=== PATIENT | female | born 1985 | race Caucasian/White ===

== ENCOUNTER 2017-06-14 23:13 | Emergency (ER) | payer SELFPAY ==
--- NOTE | 2017-06-14 23:37 | ER Document Report ---
ED GI/ - General Mode of Arrival: Ambulatory Information source: Patient TRAVEL OUTSIDE OF THE [place] IN LAST 30 DAYS: No <DON CANALES - Last Filed: 06/15/17 03:12> <ORESTES TURCIOS - Last Filed: 06/16/17 03:42> - General Chief Complaint: Vaginal Bleeding Stated Complaint: VAGINAL BLEEDING Notes: Patient is a 32-year-old female who presents to the emergency department today with complaints of vaginal bleeding. Patient states that her last normal menstrual period was in May. Patient states that 10 days after her LMP she began bleeding and she has continued bleeding for 10 days. Patient states she does not know if she is . Patient states she is having to change pads every 4 hours. Patient is . Patient denies any lightheadedness or dizziness. Patient complains of generalized fatigue. (DON CANALES) Past Medical History - General Information source: Patient - Social History Smoking Status: Never Smoker Cigarette use (# per day): No Frequency of alcohol use: None Drug Abuse: None Lives with: Family Family History: Reviewed & Not Pertinent - Medical History Medical History: Negative Surgical Hx: Negative <DON CANALES - Last Filed: 06/15/17 03:12> Review of Systems - Review of Systems Constitutional: See HPI, Other - fatigue EENT: No symptoms reported Cardiovascular: denies: Dizziness, Lightheaded Respiratory: No symptoms reported Gastrointestinal: See HPI, Abdominal pain Genitourinary: No symptoms reported Female Genitourinary: No symptoms reported Musculoskeletal: No symptoms reported Skin: No symptoms reported Hematologic/Lymphatic: No symptoms reported Neurological/Psychological: No symptoms reported -: Yes All other systems reviewed and negative <DON CANALES - Last Filed: 06/15/17 03:12> Physical Exam <DON CANALES - Last Filed: 06/15/17 03:12> <ORESTES TURCIOS - Last Filed: 06/16/17 03:42> - Vital signs Vitals: Temp Pulse Resp BP Pulse Ox 98.4 F 73 18 127/59 H 99 06/14/17 23:14 06/14/17 23:14 06/14/17 23:14 06/14/17 23:14 06/14/17 23:14 - Notes Notes: Physical Exam: General: Alert, appears well. HEENT: Normocephalic. Atraumatic. PERRL. Extraocular movements intact. Oropharynx clear. Neck: Supple. Non-tender. Respiratory: No respiratory distress. Clear and equal breath sounds bilaterally. Cardiovascular: Regular rate and rhythm. Abdominal: Normal Inspection. Non-tender. No distension. Normal Bowel Sounds. Back: Non-tender. No deformity or step off. Extremities: Moves all four extremities. Upper extremities: Normal inspection. Normal ROM. Lower extremities: Normal inspection. No edema. Normal ROM. Neurological: Normal cognition. AAOx4. Normal speech. Psychological: Normal affect. Normal Mood. Skin: Warm. Dry. Normal color. (DON CANALES) Course - Laboratory Result Diagrams: 06/15/17 00:38 <DON CANALES - Last Filed: 06/15/17 03:12> - Laboratory Result Diagrams: 06/15/17 00:38 <ORESTES TURCIOS - Last Filed: 06/16/17 03:42> - Re-evaluation Re-evalutation: 06/15/17 05:52 She presents emergency department states that she menstrual cycle for the second time this month. She has a little bit of cramping and discomfort. She denies taking that she is but has been in the past. She denies any abdominal pain flank pain fevers chills cough chest pain or shortness breath on exam she well-appearing nontoxic abdomen soft no acute tenderness guarding rebound rigidity. Straight cath urinalysis shows that she has a urinary tract infection. She is not anemic. She could have a component of a hemorrhagic urinary tract infection. Discussed with her following up with the [facility] physician to find out why she is menstruating longer than usual and started on antibiotics orally no acute clinical concerns for pyelonephritis follow primary care physician to 3 days and discussed reasons for ED return sooner (ORESTES TURCIOS) - Vital Signs Vital signs: Temp Pulse Resp BP Pulse Ox 98.0 F 77 16 122/67 97 06/15/17 02:44 06/15/17 02:44 06/15/17 02:44 06/15/17 02:44 06/15/17 02:44 - Laboratory Laboratory results interpreted by me: 06/15/17 00:24 Urine Blood LARGE H Ur Leukocyte Esterase LARGE H Discharge <DON CANALES - Last Filed: 06/15/17 03:12> <ORESTES TURCIOS - Last Filed: 06/16/17 03:42> - Discharge Clinical Impression: Urinary tract acute, Irregular menses Condition: Stable Disposition: HOME, SELF-CARE Additional Instructions: Urinary Tract Infection Your evaluation indicates that you have a urinary tract infection. This is due to germs growing in the bladder. This is a common problem. This infection usually responds quickly to antibiotics. Your antibiotic should be taken exactly as prescribed. Drink plenty of fluids -- three to four quarts a day. Occasionally, a bladder anesthetic will be prescribed to help stop the feeling of urgency until the antibiotic has a chance to clear the infection. This may cause your urine to be dark orange. Certain urine infections require a culture. If the doctor obtained a culture, the results will be back in two days. You should call to see if a change in treatment is needed. A repeat urinalysis after you finish treatment is often recommended. The physician will let you know if further testing is required. Call the doctor if you develop fever, chills, flank pain, inability to urinate, or blood in the urine. Menorrhagia You are having severe bleeding from the uterus. We call this menorrhagia. It is most often caused by a hormone imbalance. The lining of the uterus grows too thick, then comes sloughs off with severe bleeding. There's often cramping and passage of clots. Sometimes menorrhagia is caused by benign muscle tumors in the uterus, called fibroids. There's no evidence of miscarriage or tubal . Menorrhagia often has no clear cause. But it's especially common at times when the normal menstrual cycle is disturbed -- whether by recent , use of hormones, or impending menopause. Some medical problems, such as obesity , stress, or thyroid problems make menorrhagia more likely. In many cases, the menstrual cycle will return to normal without treatment. Antiinflammatory pain medicine, like ibuprofen, can decrease cramping. Where the bleeding is significant, high-dose estrogen will usually stop the bleeding within a day of two. A cycle or two of hormones ( control pills) can help restore the uterus to normal. In some patients where bleeding is severe or resistant to treatment, a D&C is required. A endometrial biopsy (a sample of the inside of the uterus) may be recommended for some older women. This would be done by a gynecology specialist. Treatment for anemia may be required if bleeding is severe. You should rest and avoid intercourse until the bleeding is controlled. Call the doctor or return for re-examination if you feel faint, have increasing pain, or have a major increase in the amount of bleeding. Prescriptions: Nitrofurantoin/Nitrofuran Mac [Macrobid 100 mg Capsule] 1 tab PO BID #20 capsule Scribe Attestation: 06/15/17 02:27 I personally performed the services described in the documentation reviewed the documentation recorded by my scribe in my presence and it accurately and completely records my words and actions (ORESTES TURCIOS) Scribe Documentation - Scribe Written by Gian:: Gian Cadena, 06/15/2017 0319 acting as scribe for :: Brad <DON CANAELS - Last Filed: 06/15/17 03:12>
[2017-06-15 00:40] LABS: APPEARANCE,URINE CLOUDY; BILIRUBIN,URINE NEGATIVE (NEGATIVE); GLUCOSE, URINE NEGATIVE (NEGATIVE); KETONES,URINE NEGATIVE (NEGATIVE); LEUKOCYTE ESTERASE,URINE LARGE (NEGATIVE); NITRITE,URINE NEGATIVE (NEGATIVE); PROTEIN,URINE NEGATIVE (NEGATIVE); URINE SPECIFIC GRAVITY 1.015; UROBILINOGEN,URINE NEGATIVE mg/dL (<2.0)
[2017-06-15 00:53] LABS: ABSOLUTE EOSINOPHILS # (AUTO) 0.1 10^3/uL (0.0-0.6); ABSOLUTE MONOCYTES (AUTO) 0.7 10^3/uL (0.1-1.4); ABSOLUTE NEUT (AUTO) 6.1 10^3/uL (1.7-8.2); BASOPHILS % (AUTO) 0.4 % (0-2); EOSINOPHILS % (AUTO) 0.8 % (0-6); HEMATOCRIT 37.4 % (36.0-47.0); HEMOGLOBIN 12.7 g/dL (12.0-15.5); HGB HCT DIFFERENCE 0.7; LYMPHOCYTES % (AUTO) 30.4 % (13-45); MEAN CORPUSCULAR HEMOGLOBIN 30.2 pg (27.0-33.4); MEAN CORPUSCULAR HGB CONC 33.8 g/dL (32.0-36.0); MEAN CORPUSCULAR VOLUME 89 fl (80-97); MONOCYTES % (AUTO) 6.7 % (3-13); RED BLOOD COUNT 4.19 10^6/uL (3.72-5.28); RED CELL DISTRIBUTION WIDTH 13.6 % (11.5-14.0); SEGMENTED NEUTROPHILS % (AUTO) 61.7 % (42-78)
[2017-06-15] MEDS ORDERED: NITROFURANTOIN MONOHYD/M-CRYST 100 MG CAPSULE PO ONE (02:27)
[2017-06-15 02:45] VITALS: BP 122/67
== END 2017-06-15 02:44 | disposition home or self-care (01) ==
LOC: EDBD 23:13 → ER 23:13
DX: N92.1 Excessive and frequent menstruation with irregular cycle (principal); N39.0 Urinary tract infection, site not specified; R53.83 Other fatigue; R10.9 Unspecified abdominal pain
CPT/HCPCS: 99284; 36415; 85025; 81025; 81001; J8499

== ENCOUNTER 2018-04-30 15:15 | Emergency (ER) | payer MEDICAID ==
[2018-04-30] MEDS ORDERED: CEFTRIAXONE INJ 1000 MG VIAL IM ONE (15:55)
[2018-04-30] MEDS ORDERED: AZITHROMYCIN 250 MG TABLET PO ONE (15:55)
[2018-04-30 16:24] LABS: APPEARANCE,URINE SLIGHTLY-CLOUDY; BILIRUBIN,URINE NEGATIVE (NEGATIVE); COLOR,URINE YELLOW; GLUCOSE, URINE NEGATIVE (NEGATIVE); KETONES,URINE NEGATIVE (NEGATIVE); LEUKOCYTE ESTERASE,URINE TRACE (NEGATIVE); NITRITE,URINE NEGATIVE (NEGATIVE); PROTEIN,URINE NEGATIVE (NEGATIVE); URINE SPECIFIC GRAVITY 1.025
[2018-04-30 16:29] LABS: RBCS (WET MOUNT) NO RBCS SEEN; T.VAGINALIS (WET MOUNT) NO TRICHOMONAS SEEN; WBCS (WET MOUNT) RARE WBCS SEEN; YEAST (WET MOUNT) NO YEAST SEEN
[2018-04-30] MEDS ORDERED: LIDOCAINE 1% INJ-PF (10 MG/ML) 30 ML SDV INJ ONE (16:38)
--- NOTE | 2018-04-30 17:16 | ER Document Report ---
HPI - HPI Patient complains to provider of: Chlamydia exposure Onset: Last week Onset/Duration: Gradual Quality of pain: Burning Pain Level: 3 Context: Patient presents complaining of urinary frequency with dysuria. Patient states her significant other informed her that they tested positive for chlamydia. Patient would like to be tested and treated for chlamydia today. Associated Symptoms: denies: Fever, Vomiting Exacerbated by: Denies Relieved by: Denies Similar symptoms previously: No Recently seen / treated by doctor: No - ROS ROS below otherwise negative: Yes Systems Reviewed and Negative: Yes All other systems reviewed and negative - CONSTITUTIONAL Constitutional: DENIES: Fever - GASTROINTESTINAL Gastrointestinal: DENIES: Abdominal Pain - URINARY Urinary: REPORTS: Dysuria, Urgency, Frequency - MUSCULOSKELETAL Musculoskeletal: DENIES: Back Pain - DERM Skin Color: Normal Skin Problems: None Past Medical History - General Information source: Patient - Social History Smoking Status: Current Every Day Smoker Smoking Education Provided: Yes Drug Abuse: None Occupation: [employer] Family History: Reviewed & Not Pertinent Patient has suicidal ideation: No Patient has homicidal ideation: No - Medical History Medical History: Negative Renal/ Medical History: Denies: Hx Peritoneal Dialysis Past Surgical History: Reports: Hx Adenoidectomy, Hx Oral Surgery, Hx Tonsillectomy Vertical Provider Document - CONSTITUTIONAL Agree With Documented VS: Yes Exam Limitations: No Limitations General Appearance: WD/WN, No Apparent Distress - INFECTION CONTROL TRAVEL OUTSIDE OF THE [place] IN LAST 30 DAYS: No - HEENT HEENT: Atraumatic, Normal ENT Exam, Normocephalic - NECK Neck: Normal Inspection, Supple - RESPIRATORY Respiratory: Breath Sounds Normal, No Respiratory Distress - CARDIOVASCULAR Cardiovascular: Regular Rate, Regular Rhythm - GI/ABDOMEN Gastrointestinal: Abdomen Soft, Abdomen Non-Tender, No Organomegaly - REPRODUCTIVE Female Genitalia: Abnormal Inspection - Vaginal discharge. negative: CMT, Adnexal Pain-Right, Adnexal Pain-Left - BACK Back: Normal Inspection. negative: CVA Tenderness-Right, CVA Tenderness-Left - MUSCULOSKELETAL/EXTREMETIES Musculoskeletal/Extremeties: KATHERINE JUAREZ - NEURO Level of Consciousness: Awake, Alert, Appropriate Motor/Sensory: No Motor Deficit - DERM Integumentary: Warm, Dry, No Rash Course - Vital Signs Vital signs: Temp Pulse Resp BP Pulse Ox 97.8 F 61 16 129/70 H 100 04/30/18 15:32 04/30/18 15:32 04/30/18 15:32 04/30/18 15:32 04/30/18 15:32 - Laboratory Laboratory results interpreted by me: 04/30/18 15:44 Urine Urobilinogen 2.0 H Ur Leukocyte Esterase TRACE H Urine Ascorbic Acid 40 H Discharge - Discharge Clinical Impression: Exposure to chlamydia Condition: Stable Disposition: HOME, SELF-CARE Instructions: Azithromycin ([facility]), Chlamydia ([facility]), Rocephin ([facility]) Additional Instructions: Return immediately for any new or worsening symptoms Followup with your primary care provider, call tomorrow to make a followup appointment Cultures are pending, we will call if you need any different treatment Forms: Return to Work [facility] - Follow up as needed
[2018-04-30 17:32] VITALS: BP 126/68
[2018-04-30 17:49] LABS: CHLAM PCR DETECTED (NOT DETECT); GON PCR NOT DETECTED (NOT DETECT)
== END 2018-04-30 17:30 | disposition home or self-care (01) ==
LOC: ER 15:15
DX: Z20.2 Contact with and (suspected) exposure to infections with a predominantly sexual mode of transmission (principal); F17.200 Nicotine dependence, unspecified, uncomplicated
CPT/HCPCS: 99284; 96372; 87086; 87210; 81025; 81001; 87491; 87591; Q0144; J3490; J0696

== ENCOUNTER 2018-05-08 18:39 | Emergency (ER) | payer MEDICAID ==
[2018-05-08 18:49] VITALS: BP 114/50
[2018-05-08 19:47] LABS: APPEARANCE,URINE SLIGHTLY-CLOUDY; BILIRUBIN,URINE NEGATIVE (NEGATIVE); COLOR,URINE YELLOW; GLUCOSE, URINE NEGATIVE (NEGATIVE); KETONES,URINE NEGATIVE (NEGATIVE); LEUKOCYTE ESTERASE,URINE MODERATE (NEGATIVE); NITRITE,URINE NEGATIVE (NEGATIVE); PROTEIN,URINE NEGATIVE (NEGATIVE); URINE SPECIFIC GRAVITY 1.017; UROBILINOGEN,URINE NEGATIVE mg/dL (<2.0)
--- NOTE | 2018-05-08 20:35 | ER Document Report ---
ED GI/ - General Chief Complaint: STD Exposure Stated Complaint: POSSIBLE STD EXPOSURE Time Seen by Provider: 05/08/18 19:23 Mode of Arrival: Ambulatory Information source: Patient Notes: 33-year-old female presented to ED for recheck of STD that she was diagnosed with last week. She states she was treated last week but was told to come back and have her sample be done. She was treated for chlamydia last week. Patient is alert and oriented respirations regular and unlabored speaking in full sentences walking with a even steady gait. TRAVEL OUTSIDE OF THE [place] IN LAST 30 DAYS: No - HPI Patient complains to provider of: Other - States she is here to recheck her STD as she was positive for chlamydia last week and treated. Onset: Last week Timing/Duration: Gone Quality of pain: No pain Pain Level: Denies Vaginal bleeding (Compared to normal period): None Associated symptoms: None Exacerbated by: Denies Relieved by: Denies Similar symptoms previously: Yes Recently seen / treated by doctor: Yes - Related Data Allergies/Adverse Reactions: latex Allergy (Verified 04/30/18 15:18) Past Medical History - General Information source: Patient - Social History Smoking Status: Current Every Day Smoker Cigarette use (# per day): Yes - 5 cigarettes a day Chew tobacco use (# tins/day): No Smoking Education Provided: Yes - 4 minutes Frequency of alcohol use: Rare Drug Abuse: None Occupation: [employer] Lives with: Spouse/Significant other Family History: Reviewed & Not Pertinent Patient has suicidal ideation: No Patient has homicidal ideation: No - Past Medical History Cardiac Medical History: Reports: None Pulmonary Medical History: Reports: None EENT Medical History: Reports: None Neurological Medical History: Reports: None Endocrine Medical History: Reports: None Renal/ Medical History: Reports: Other - Chlamydia Malignancy Medical History: Reports: None GI Medical History: Reports: None Musculoskeletal Medical History: Reports None Skin Medical History: Reports None Psychiatric Medical History: Reports: None Traumatic Medical History: Reports: None Infectious Medical History: Reports: None Past Surgical History: Reports: Hx Adenoidectomy, Hx Oral Surgery, Hx Tonsillectomy - Immunizations Immunizations up to date: Yes Review of Systems - Review of Systems Constitutional: No symptoms reported EENT: No symptoms reported Cardiovascular: No symptoms reported Respiratory: No symptoms reported Gastrointestinal: No symptoms reported Genitourinary: No symptoms reported Female Genitourinary: No symptoms reported, Other - States she is here to recheck her STD Musculoskeletal: No symptoms reported Skin: No symptoms reported Hematologic/Lymphatic: No symptoms reported Neurological/Psychological: No symptoms reported -: Yes All other systems reviewed and negative Physical Exam - Vital signs Vitals: Temp Pulse Resp Pulse Ox 98.3 F 62 16 100 05/08/18 18:47 05/08/18 18:47 05/08/18 18:47 05/08/18 18:47 Interpretation: Normal - General General appearance: Appears well, Alert - HEENT Head: Normocephalic, Atraumatic Eyes: Normal Pupils: PERRL - Respiratory Respiratory status: No respiratory distress Chest status: Nontender Breath sounds: Normal Chest palpation: Normal - Cardiovascular Rhythm: Regular Heart sounds: Normal auscultation Murmur: No - Abdominal Inspection: Normal Distension: No distension Bowel sounds: Normal Tenderness: Nontender Organomegaly: No organomegaly - Back Back: Normal, Nontender - Extremities General upper extremity: Normal inspection, Nontender, Normal color, Normal ROM , Normal temperature General lower extremity: Normal inspection, Nontender, Normal color, Normal ROM , Normal temperature, Normal weight bearing. No: Stephanie's sign - Neurological Neuro grossly intact: Yes Cognition: Normal Orientation: AAOx4 Adan Coma Scale Eye Opening: Spontaneous Adan Coma Scale Verbal: Oriented Adan Coma Scale Motor: Obeys Commands Gilliam Coma Scale Total: 15 Speech: Normal Motor strength normal: LUE, RUE, LLE, RLE Sensory: Normal - Psychological Associated symptoms: Normal affect, Normal mood - Skin Skin Temperature: Warm Skin Moisture: Dry Skin Color: Normal Course - Re-evaluation Re-evalutation: 05/09/18 02:48 Patient was seen tonight for recheck her STD. Her urine and her GC and chlamydia were negative for infection. She did return call to ask for the results and was informed of her results. - Vital Signs Vital signs: Temp Pulse Resp BP Pulse Ox 98.3 F 64 16 114/50 L 100 05/08/18 18:47 05/08/18 18:48 05/08/18 18:48 05/08/18 18:48 05/08/18 18:48 - Laboratory Laboratory results interpreted by me: 05/08/18 19:25 Urine Blood SMALL H Ur Leukocyte Esterase MODERATE H Discharge - Discharge Clinical Impression: std recheck Condition: Stable Disposition: HOME, SELF-CARE Instructions: Family Physicians / Practices Additional Instructions: You were seen today for recheck for your STD. You were seen a week ago and checked for STD and would you were positive for chlamydia. You have received the treatment for the chlamydia. Your back today to ensure that your chlamydia is clear. Your doctor last week told you to return to the emergency room if you were concerned. Your STD recheck has been sent it does not come back for several hours. If you will call in 3 hours to [phone] I will give you the results to the STD check. Please no sexual intercourse until you speak with me. If no one answers the [phone] please call [phone] and ask for Ilir. If you are positive for STD you will be given a nurse visit to come in and get your medications. FOLLOW-UP CARE: If you have been referred to a physician for follow-up care, call the physician s office for an appointment as you were instructed or within the next two days. If you experience worsening or a significant change in your symptoms, notify the physician immediately or return to the Emergency Department at any time for re-evaluation. Forms: Smoking Cessation Education, Return to Work
[2018-05-08 21:13] LABS: CHLAM PCR NOT DETECTED (NOT DETECT); GON PCR NOT DETECTED (NOT DETECT)
== END 2018-05-08 20:42 | disposition home or self-care (01) ==
LOC: ER 18:39
DX: Z20.2 Contact with and (suspected) exposure to infections with a predominantly sexual mode of transmission (principal); F17.210 Nicotine dependence, cigarettes, uncomplicated; Z91.040 Latex allergy status
CPT/HCPCS: 81001; 87086; 87491; 87591; 99283

== ENCOUNTER 2018-08-01 19:16 | Emergency (ER) | payer SELFPAY ==
--- NOTE | 2018-08-01 19:51 | ER Document Report ---
ED Medical Screen (RME) - General Chief Complaint: Vag Bleeding, +preg <12wks Stated Complaint: VAGINAL SPOTTING/BLEEDING Time Seen by Provider: 08/01/18 19:49 Notes: 33 years old female presents today with vaginal spotting and bleeding. Her last menstrual cycle was June 16, she tested a , it was positive. Denies any abdominal cramping nausea vomiting. Denies any dizziness. Denies any fever chills. Does denies any dysuria frequency urgency. TRAVEL OUTSIDE OF THE [place] IN LAST 30 DAYS: No - Related Data Allergies/Adverse Reactions: latex Allergy (Verified 04/30/18 15:18) Past Medical History - General Last Menstrual Period: 06/21/2018 - Social History Frequency of alcohol use: None Drug Abuse: None Renal/ Medical History: Denies: Hx Peritoneal Dialysis Past Surgical History: Reports: Hx Adenoidectomy, Hx Oral Surgery - wisdom teeth , Hx Tonsillectomy - and adenoids - Immunizations Immunizations up to date: Yes Hx Diphtheria, Pertussis, Tetanus Vaccination: Yes Physical Exam - Vital signs Vitals: Temp Pulse Resp BP Pulse Ox 98.6 F 60 18 126/69 H 100 08/01/18 19:23 08/01/18 19:23 08/01/18 19:23 08/01/18 19:23 08/01/18 19:23 Course - Vital Signs Vital signs: Temp Pulse Resp BP Pulse Ox 98.6 F 60 18 126/69 H 100 08/01/18 19:23 08/01/18 19:23 08/01/18 19:23 08/01/18 19:23 08/01/18 19:23
[2018-08-01 20:18] LABS: ABSOLUTE EOSINOPHILS # (AUTO) 0.2 10^3/uL (0.0-0.6); ABSOLUTE LYMPHOCYTES (AUTO) 4.2 10^3/uL (0.5-4.7); ABSOLUTE MONOCYTES (AUTO) 0.8 10^3/uL (0.1-1.4); ABSOLUTE NEUT (AUTO) 6.5 10^3/uL (1.7-8.2); BASOPHILS % (AUTO) 0.4 % (0-2); EOSINOPHILS % (AUTO) 1.3 % (0-6); HEMOGLOBIN 13.7 g/dL (12.0-15.5); LYMPHOCYTES % (AUTO) 35.7 % (13-45); MEAN CORPUSCULAR HEMOGLOBIN 30.3 pg (27.0-33.4); MEAN CORPUSCULAR HGB CONC 34.2 g/dL (32.0-36.0); MEAN CORPUSCULAR VOLUME 89 fl (80-97); MONOCYTES % (AUTO) 6.8 % (3-13); PLATELET COUNT 305 10^3/uL (150-450); RED BLOOD COUNT 4.51 10^6/uL (3.72-5.28); RED CELL DISTRIBUTION WIDTH 12.8 % (11.5-14.0); SEGMENTED NEUTROPHILS % (AUTO) 55.8 % (42-78); TOTAL CELLS COUNTED % (AUTO) 100 %; WHITE BLOOD COUNT 11.7 10^3/uL (4.0-10.5)
--- NOTE | 2018-08-01 21:17 | RADIOLOGY REPORT (SQ) ---
EXAM DESCRIPTION: US TRANSVAGINAL COMPLETED DATE/TME: 08/01/2018 19:49 CLINICAL HISTORY: 33 years, Female, and vaginal bleeding Findings: Uterus is retroverted and measures 8.5 x 5.6 x 4.9 cm. No intrauterine gestational sac is noted. Right ovary measures 3.8 x 1.6 x 1.6 cm. Left ovary measures 4.0 x 1.8 x 1.7 cm. No abnormal adnexal masses. Cervix measures 3.1 cm. Vascular flow is noted on color and spectral Doppler images to both ovaries. No significant free fluid in the cul-de-sac. IMPRESSION: No evidence for IUP.
--- NOTE | 2018-08-01 21:49 | ER Document Report ---
ED General - General Chief Complaint: Vag Bleeding, +preg <12wks Stated Complaint: VAGINAL SPOTTING/BLEEDING Time Seen by Provider: 08/01/18 19:49 Notes: Patient is a 33-year-old female at approximately 6 weeks gestation by LMP who presents with heavy vaginal bleeding. States that the symptoms have been going for the past several hours. No history of similar symptoms during this . No history of ectopic pregnancies. She denies any pain at the time of my assessment. No dysuria. No abdominal pain or cramping at home. She has not established care for this . No vaginal discharge. No obvious trigger for tonight symptoms. TRAVEL OUTSIDE OF THE [place] IN LAST 30 DAYS: No - Related Data Allergies/Adverse Reactions: latex Allergy (Verified 04/30/18 15:18) Past Medical History - General Information source: Patient Last Menstrual Period: 06/21/2018 - Social History Smoking Status: Never Smoker Frequency of alcohol use: None Drug Abuse: None Lives with: Spouse/Significant other Family History: Reviewed & Not Pertinent Patient has suicidal ideation: No Patient has homicidal ideation: No Renal/ Medical History: Denies: Hx Peritoneal Dialysis Past Surgical History: Reports: Hx Adenoidectomy, Hx Oral Surgery - wisdom teeth , Hx Tonsillectomy - and adenoids - Immunizations Immunizations up to date: Yes Hx Diphtheria, Pertussis, Tetanus Vaccination: Yes Review of Systems - Review of Systems Notes: Constitutional: Negative for fever. HENT: Negative for sore throat. Eyes: Negative for visual changes. Cardiovascular: Negative for chest pain. Respiratory: Negative for shortness of breath. Gastrointestinal: Negative for abdominal pain, vomiting or diarrhea. Genitourinary: Positive for vaginal bleeding Musculoskeletal: Negative for back pain. Skin: Negative for rash. Neurological: Negative for headaches, weakness or numbness. 10 point ROS negative except as marked above and in HPI. Physical Exam - Vital signs Vitals: Temp Pulse Resp BP Pulse Ox 98.6 F 60 18 126/69 H 100 08/01/18 19:23 08/01/18 19:23 08/01/18 19:23 08/01/18 19:23 08/01/18 19:23 Interpretation: Normal Notes: PHYSICAL EXAMINATION: GENERAL: Well-appearing, well-nourished and in no acute distress. HEAD: Atraumatic, normocephalic. EYES: Pupils equal round and reactive to light, extraocular movements intact, sclera anicteric, conjunctiva are normal. ENT: nares patent, oropharynx clear without exudates. Moist mucous membranes. NECK: Normal range of motion, supple without lymphadenopathy LUNGS: Breath sounds clear to auscultation bilaterally and equal. No wheezes rales or rhonchi. HEART: Regular rate and rhythm without murmurs ABDOMEN: Soft, nontender, normoactive bowel sounds. No guarding, no rebound. No masses appreciated. EXTREMITIES: Normal range of motion, no pitting or edema. No cyanosis. NEUROLOGICAL: No focal neurological deficits. Moves all extremities spontaneously and on command. PSYCH: Normal mood, normal affect. SKIN: Warm, Dry, normal turgor, no rashes or lesions noted. Course - Re-evaluation Re-evalutation: 08/01/18 21:46 Patient presents with a heavy vaginal bleeding in the setting of an early first trimester . Transvaginal ultrasound is unable to visualize an intrauterine at this time. Quantitative beta hCG below the zone of demargination though is far lower than it should be given that the patient's LMP was almost 6 weeks ago. She is Rh positive. Patient's abdominal exam is otherwise benign without any focal tenderness. I do not suspect an acute appendicitis, pyelonephritis, cystitis, or bowel obstruction. Suspect a likely missed . I have however requested that the patient follow-up either in the emergency department or in women's clinic in 48 hours for recheck of her quantitative beta hCG to ensure that this is not an extra uterine and that it is downtrending to confirm a miscarriage. I have informed her that without this check I cannot definitively exclude an ectopic and the patient states that she understands. At this time will discharge with return precautions and follow-up recommendations. Verbal discharge instructions given a the bedside and opportunity for questions given. Medication warnings reviewed. Patient is in agreement with this plan and has verbalized understanding of return precautions and the need for primary care follow-up in the next 24-72 hours. - Vital Signs Vital signs: Temp Pulse Resp BP Pulse Ox 97.7 F 65 16 124/66 100 08/01/18 21:52 08/01/18 21:52 08/01/18 21:52 08/01/18 21:52 08/01/18 21:52 - Laboratory Result Diagrams: 08/01/18 20:00 Laboratory results interpreted by me: 08/01/18 08/01/18 20:00 20:00 WBC 11.7 H Beta HCG, Quant 15.16 H - Diagnostic Test Radiology reviewed: Reports reviewed Discharge - Discharge Clinical Impression: Vaginal bleeding during , Missed Condition: Good Disposition: HOME, SELF-CARE Additional Instructions: You need to return to the ED or the women's health clinic in 48 hours for a recheck of your hormone level. The ultrasound is unable to see anything at this time which unfortunately is likely due to you having undergone a miscarriage. However, without this recheck of your hormone we cannot definitively exclude an ectopic at this time. Please return if you develop severe abdominal pain, bleeding that goes through more than 2 pads for more than 2 hours, pass out, or have any other symptoms that are concerning to you. Please follow-up closely with your OBGYN regarding todays visit. Referrals: BELL RODRIGUEZ MD [ACTIVE STAFF] - 08/04/18
[2018-08-01 21:53] VITALS: BP 124/66
== END 2018-08-01 21:56 | disposition home or self-care (01) ==
LOC: ER 19:16
DX: O02.1 Missed abortion (principal); Z91.040 Latex allergy status
CPT/HCPCS: 36415; 76817; 84702; 85025; 93976; 99284

== ENCOUNTER 2018-08-04 13:56 | Emergency (ER) | payer SELFPAY ==
[2018-08-04 14:56] VITALS: BP 129/58
--- NOTE | 2018-08-04 14:56 | ER Document Report ---
HPI - HPI Patient complains to provider of: Here for quantitative test only Pain Level: Denies Context: 33-year-old female is here for quantitative test only she has minimal spotting and she has no pelvic pain or discharge. Her serum quantitative was only 15 the other day and she was told to come back today for repeat. Associated Symptoms: None Exacerbated by: Denies Relieved by: Denies Similar symptoms previously: Yes Recently seen / treated by doctor: Yes - ROS ROS below otherwise negative: Yes Systems Reviewed and Negative: Yes All other systems reviewed and negative Past Medical History - General Information source: Patient - Social History Smoking Status: Never Smoker Lives with: Family Family History: Reviewed & Not Pertinent - Medical History Medical History: Negative Renal/ Medical History: Denies: Hx Peritoneal Dialysis Past Surgical History: Reports: Hx Adenoidectomy, Hx Oral Surgery - wisdom teeth , Hx Tonsillectomy - and adenoids - Immunizations Immunizations up to date: Yes Hx Diphtheria, Pertussis, Tetanus Vaccination: Yes Vertical Provider Document - CONSTITUTIONAL Exam Limitations: No Limitations General Appearance: No Apparent Distress - INFECTION CONTROL TRAVEL OUTSIDE OF THE [place] IN LAST 30 DAYS: No - GI/ABDOMEN Gastrointestinal: Abdomen Soft, Abdomen Non-Tender Course - Re-evaluation Re-evalutation: 08/04/18 15:08 Patient will be calling me back for the results. She was not given a outpatient serum quantitative hCG form today we will talk over the phone the result comes back. She has no pelvic cramping or pain. She has some mild spotting. 08/04/18 Patient call back in the hCG is negative. Discharge - Discharge Clinical Impression: Early stage of , Spotting Condition: Good Disposition: HOME, SELF-CARE Instructions: Bleeding During Early ([facility]), [facility], [facility] ([facility]) Additional Instructions: Call me in 2 hours for the serum quantitative test result. At [phone] If the number is going up you are still , if the number is going down this has been a miscarriage You need to follow-up with the health department or [facility] until the result is completely negative and your blood.
== END 2018-08-04 16:14 | disposition home or self-care (01) ==
LOC: ER 13:56
DX: Z32.02 Encounter for pregnancy test, result negative (principal)
CPT/HCPCS: 36415; 84702; 99282

== ENCOUNTER 2018-10-03 19:25 | Emergency (ER) | payer MEDICAID ==
--- NOTE | 2018-10-03 19:56 | ER Document Report ---
ED Medical Screen (RME) - General Chief Complaint: Vaginal Bleeding Stated Complaint: BLEEDING IN , 5-6WKS ALONG Time Seen by Provider: 10/03/18 19:49 Notes: 33-year-old female patient who had a miscarriage on 08/01/2018, no period since then. She was seen by her doctor 2 days ago had ultrasound showing a 5-6-week intrauterine . This evening she started cramping and bleeding. She is blood type A+. I have greeted and performed a rapid initial assessment of this patient. A comprehensive ED assessment and evaluation of the patient, analysis of test results and completion of the medical decision making process will be conducted by additional ED providers. TRAVEL OUTSIDE OF THE [place] IN LAST 30 DAYS: No - Related Data Allergies/Adverse Reactions: latex Allergy (Verified 08/04/18 13:57) Past Medical History - Social History Chew tobacco use (# tins/day): No Frequency of alcohol use: None Drug Abuse: None Renal/ Medical History: Denies: Hx Peritoneal Dialysis Past Surgical History: Reports: Hx Adenoidectomy, Hx Oral Surgery - wisdom teeth, Hx Tonsillectomy - and adenoids - Immunizations Immunizations up to date: Yes Hx Diphtheria, Pertussis, Tetanus Vaccination: Yes Physical Exam - Vital signs Vitals: Temp Pulse Resp BP Pulse Ox 98.5 F 86 16 129/61 H 100 10/03/18 19:37 10/03/18 19:37 10/03/18 19:37 10/03/18 19:37 10/03/18 19:37 Course - Vital Signs Vital signs: Temp Pulse Resp BP Pulse Ox 98.5 F 86 16 129/61 H 100 10/03/18 19:37 10/03/18 19:37 10/03/18 19:37 10/03/18 19:37 10/03/18 19:37
[2018-10-03 20:56] LABS: ABSOLUTE EOSINOPHILS # (AUTO) 0.2 10^3/uL (0.0-0.6); ABSOLUTE LYMPHOCYTES (AUTO) 2.6 10^3/uL (0.5-4.7); ABSOLUTE MONOCYTES (AUTO) 0.7 10^3/uL (0.1-1.4); ABSOLUTE NEUT (AUTO) 8.7 10^3/uL (1.7-8.2); BASOPHILS % (AUTO) 0.3 % (0-2); EOSINOPHILS % (AUTO) 1.3 % (0-6); HEMATOCRIT 38.9 % (36.0-47.0); HEMOGLOBIN 13.2 g/dL (12.0-15.5); LYMPHOCYTES % (AUTO) 21.1 % (13-45); MEAN CORPUSCULAR HGB CONC 33.9 g/dL (32.0-36.0); MEAN CORPUSCULAR VOLUME 88 fl (80-97); PLATELET COUNT 303 10^3/uL (150-450); RED CELL DISTRIBUTION WIDTH 13.4 % (11.5-14.0); SEGMENTED NEUTROPHILS % (AUTO) 71.3 % (42-78); TOTAL CELLS COUNTED % (AUTO) 100 %; WHITE BLOOD COUNT 12.1 10^3/uL (4.0-10.5)
[2018-10-03 21:15] LABS: APPEARANCE,URINE CLEAR; BILIRUBIN,URINE NEGATIVE (NEGATIVE); COLOR,URINE YELLOW; GLUCOSE, URINE NEGATIVE (NEGATIVE); KETONES,URINE NEGATIVE (NEGATIVE); LEUKOCYTE ESTERASE,URINE NEGATIVE (NEGATIVE); NITRITE,URINE NEGATIVE (NEGATIVE); PROTEIN,URINE NEGATIVE (NEGATIVE); URINE SPECIFIC GRAVITY 1.013; UROBILINOGEN,URINE NEGATIVE mg/dL (<2.0)
--- NOTE | 2018-10-03 21:31 | RADIOLOGY REPORT (SQ) ---
US PELVIS HISTORY: Early . Pelvic pain. COMPARISON: None. TECHNIQUE: Grayscale, color Doppler, and spectral Doppler ultrasound images of the pelvis were obtained. FINDINGS: There is an intrauterine gestational sac with a yolk sac and pole visualized. The crown-rump length measures 0.79 cm, which corresponds to 6 weeks 5 days of . The heart rate is 150 bpm. The cervix is closed and measures 3 cm in length. The right ovary measures 4.2 x 2.4 x 2.2 cm. The left ovary measures 3.5 x 1.6 x 1.9 cm. Both ovaries contain normal follicles and normal color Doppler blood flow. No pelvic free fluid is seen. IMPRESSION: Single live IUP with estimated gestational age 6 weeks 5 days.
--- NOTE | 2018-10-03 22:15 | ER Document Report ---
ED General - General Chief Complaint: Vaginal Bleeding Stated Complaint: BLEEDING IN , 5-6WKS ALONG Time Seen by Provider: 10/03/18 19:49 Notes: Patient is a 33-year-old female who presents to the emergency department with a chief complaint of vaginal bleeding. She is 5-6 weeks . She has seen her OB doctor, and had an ultrasound. At that time her ultrasound was normal. She developed some bleeding today and is worried she may be miscarrying. She has had 3 previous full-term births and 2 previous miscarriages. Her last miscarriage was on July 31 of this year. She does admit to mild cramping. Denies fever, nausea, vomiting, or diarrhea. TRAVEL OUTSIDE OF THE [place] IN LAST 30 DAYS: No - Related Data Allergies/Adverse Reactions: latex Allergy (Verified 08/04/18 13:57) Past Medical History - Social History Smoking Status: Never Smoker Chew tobacco use (# tins/day): No Frequency of alcohol use: None Drug Abuse: None Family History: Reviewed & Not Pertinent Patient has suicidal ideation: No Patient has homicidal ideation: No Renal/ Medical History: Denies: Hx Peritoneal Dialysis Past Surgical History: Reports: Hx Adenoidectomy, Hx Oral Surgery - wisdom teeth, Hx Tonsillectomy - and adenoids - Immunizations Immunizations up to date: Yes Hx Diphtheria, Pertussis, Tetanus Vaccination: Yes Review of Systems - Review of Systems Notes: REVIEW OF SYSTEMS: CONSTITUTIONAL : Denies recent illness. Denies recent unintentional weight loss. Denies fever, chills, or sweats. EENT: Denies eye, ear, throat, or mouth pain, discharge, or symptoms. Denies nasal or sinus congestion. CARDIOVASCULAR: Denies chest pain. RESPIRATORY: Denies shortness of breath, cough, congestion, difficulty breathing, or wheezing. GASTROINTESTINAL: Denies nausea, vomiting, and diarrhea. Denies abdominal pain. Denies constipation. Last BM: Today GENITOURINARY: Denies difficulty urinating, burning, blood in urine, urgency or frequency. FEMALE GENITOURINARY: See HPI MUSCULOSKELETAL: Denies neck and back pain. Denies joint pain or swelling. SKIN: Denies rash, itchiness, or lesions HEMATOLOGIC : Denies easy bruising or bleeding. LYMPHATIC: Denies swollen, painful, enlarged glands. NEUROLOGICAL: Denies no numbness or tingling denies weakness. Denies headache. Denies altered mental status. Denies alteration in speech. PSYCHIATRIC: Denies stress, anxiety, alteration in sleep patterns, or depression. All other systems reviewed and negative. Physical Exam - Vital signs Vitals: Temp Pulse Resp BP Pulse Ox 98.5 F 86 16 129/61 H 100 10/03/18 19:37 10/03/18 19:37 10/03/18 19:37 10/03/18 19:37 10/03/18 19:37 - Notes Notes: PHYSICAL EXAMINATION: GENERAL: Appears well, healthy, well-nourished, no acute distress. HEAD: Normocephalic, atraumatic. EYES: PERRL, conjunctiva normal, all extraocular movements intact, sclera nonicteric ENT: Moist mucous membranes. NECK: Supple, no noticeable swelling, redness, rash. Normal range of motion. LUNGS: Equal breath sounds bilaterally and clear to auscultation. No wheezes rales or rhonchi. CARDIOVASCULAR: S1-S2, regular rate, regular rhythm. Radial pulses 2+, normal. ABDOMEN: Normoactive bowel sounds. Soft, mildly tender, no guarding, no rebound tenderness, and no masses palpated. EXTREMITIES: Normal strength and range of motion, no pitting or edema. No cyanosis. NEUROLOGICAL: Moves all extremities upon command. Strength 5/5 in all extremities. PSYCH: Normal mood, normal affect. SKIN: Warm, dry. No rash, lesions, ulcerations noted. Normal skin turgor. Course - Re-evaluation Re-evalutation: Differential diagnosis includes miscarriage, vaginal bleeding during , cervical cysts, or other pelvic etiologies. 10/03/18 22:17 Labs and ultrasound results were discussed with the patient. Based off her labs and ultrasound, I do not suspect the patient has any life-threatening issues at this time. I have given her pelvic precautions. She has not have sex or place anything in her vagina until she sees her LAND PLANNER. She will follow-up with an LAND PLANNER in regards to this emergency department visit. Verbal discharge instructions were given to the patient. She verbalized understanding. She is stable for discharge. - Vital Signs Vital signs: Temp Pulse Resp BP Pulse Ox 97.7 F 81 16 124/56 L 100 10/03/18 22:26 10/03/18 22:26 10/03/18 19:37 10/03/18 22:26 10/03/18 22:26 - Laboratory Result Diagrams: 10/03/18 20:35 Laboratory results interpreted by me: 10/03/18 10/03/18 10/03/18 20:35 20:35 20:53 WBC 12.1 H Absolute Neutrophils 8.7 H Beta HCG, Quant 43334.00 H Urine Blood SMALL H Discharge - Discharge Clinical Impression: Vaginal bleeding during Condition: Stable Disposition: HOME, SELF-CARE Additional Instructions: Your seen today in the emergency department while . At this time you have a normal intrauterine . Your labs are normal. You need to be on strict pelvic precautions. Do not have sex or do not place anything in your vagina until you see an LAND PLANNER. Please follow-up with an LAND PLANNER within the next week. If you have worsening abdominal pain, develop bleeding, or have any symptoms that are worrisome to you, please return to the emergency department. Forms: Return to Work Referrals: VERO CORDOVA MD [Primary Care Provider] - Follow up in 1 week
[2018-10-03 22:27] VITALS: BP 124/56
== END 2018-10-03 22:28 | disposition home or self-care (01) ==
LOC: ER 19:25
DX: O20.9 Hemorrhage in early pregnancy, unspecified (principal); Z3A.01 Less than 8 weeks gestation of pregnancy; Z91.040 Latex allergy status
CPT/HCPCS: 36415; 76817; 81001; 84702; 85025; 99284

== ENCOUNTER 2019-05-17 09:11 | Outpatient (CLI) | payer BC, MEDICAID ==
[2019-05-17 09:40] LABS: APPEARANCE,URINE SLIGHTLY-CLOUDY; BILIRUBIN,URINE NEGATIVE (NEGATIVE); COLOR,URINE YELLOW; GLUCOSE, URINE NEGATIVE (NEGATIVE); KETONES,URINE NEGATIVE (NEGATIVE); LEUKOCYTE ESTERASE,URINE NEGATIVE (NEGATIVE); NITRITE,URINE NEGATIVE (NEGATIVE); PROTEIN,URINE NEGATIVE (NEGATIVE); UROBILINOGEN,URINE NEGATIVE mg/dL (<2.0)
[2019-05-17 10:01] LABS: URINE AMPHETAMINES SCREEN NEGATIVE; URINE BARBITURATES SCREEN NEGATIVE; URINE BENZODIAZEPINES SCREEN NEGATIVE; URINE COCAINE SCREEN NEGATIVE; URINE METHADONE SCREEN NEGATIVE; URINE PHENCYCLIDINE SCREEN NEGATIVE
[2019-05-17 10:02] LABS: URINE MARIJUANA (THC) SCREEN NEGATIVE
[2019-05-17] MEDS ORDERED: HYDROXYZINE PAMOATE 50 MG CAPSULE ONE (12:15)
[2019-05-17] MEDS ORDERED: HYDROXYZINE PAMOATE 50 MG CAPSULE PO ONE (12:22)
--- NOTE | 2019-05-17 13:19 | Non Stress Test Report ---
Non Stress Test Datetime Report Generated by CPN: 05/17/2019 13:19 DEMOGRAPHIC EGA NST: 37.6 INDICATION Indication for Study: Other Indication for Study (NST) Other: LABOR CHECK MONITORING Monitor Explained: Monitor Explained; Test Explained; Patient Verbalized Understanding Time on Monitor: 05/17/2019 09:34 Time off Monitor: 05/17/2019 12:04 NST Duration: 150 NST INTERVENTIONS NST Interventions: PO Hydration; Reposition Patient Physician Notified NST: DR ABRAMS BABY A: [id number] BABY A Movement : Present Contraction Frequency : IRRITABILITY FHR Baseline : 115 Accelerations : 15X15 Decelerations : None Variability : Moderate 6-25bpm NST Review: Meets Criteria for Reactive NST NST Review and Verified By : B Baidy RN NST Results: Reactive NST REPORT Report Trigger: Send Report
== END 2019-05-17 12:29 | disposition home or self-care (01) ==
LOC: LC 09:11
PROVIDERS: ATTEND Student in an Organized Health Care Education/Training Program
PROC: 4A1HXCZ Monitoring of Products of Conception, Cardiac Rate, External Approach (ICD-10-PCS; principal; 2019-05-17)
DX: O47.1 False labor at or after 37 completed weeks of gestation (principal); Z3A.37 37 weeks gestation of pregnancy
CPT/HCPCS: 59025; 80307; 81005

== ENCOUNTER 2019-05-24 17:52 | Inpatient (IN) | payer BC, MEDICAID ==
[2019-05-24] MEDS ORDERED: DINOPROSTONE 10 MG VAGINAL INSERT.SR PV PRN (18:46)
[2019-05-24] MEDS ORDERED: RINGERS SOLUTION,LACTATED 1,000 ML IV PRN (18:46)
[2019-05-24] MEDS ORDERED: DINOPROSTONE 10 MG VAGINAL INSERT.SR ONE (18:56)
[2019-05-24] MEDS ORDERED: RINGERS SOLUTION,LACTATED 300 ML IV ONE (19:00)
[2019-05-24 20:31] LABS: APPEARANCE,URINE CLEAR; BILIRUBIN,URINE NEGATIVE (NEGATIVE); COLOR,URINE STRAW; GLUCOSE, URINE NEGATIVE (NEGATIVE); KETONES,URINE NEGATIVE (NEGATIVE); LEUKOCYTE ESTERASE,URINE NEGATIVE (NEGATIVE); NITRITE,URINE NEGATIVE (NEGATIVE); PROTEIN,URINE NEGATIVE (NEGATIVE); URINE SPECIFIC GRAVITY 1.009; UROBILINOGEN,URINE NEGATIVE mg/dL (<2.0)
[2019-05-24 20:42] LABS: ABSOLUTE EOSINOPHILS # (AUTO) 0.1 10^3/uL (0.0-0.6); ABSOLUTE LYMPHOCYTES (AUTO) 2.6 10^3/uL (0.5-4.7); ABSOLUTE MONOCYTES (AUTO) 0.7 10^3/uL (0.1-1.4); ABSOLUTE NEUT (AUTO) 7.2 10^3/uL (1.7-8.2); BASOPHILS % (AUTO) 0.3 % (0-2); EOSINOPHILS % (AUTO) 0.6 % (0-6); HEMATOCRIT 33.7 % (36.0-47.0); HEMOGLOBIN 11.5 g/dL (12.0-15.5); LYMPHOCYTES % (AUTO) 24.3 % (13-45); MEAN CORPUSCULAR HEMOGLOBIN 29.6 pg (27.0-33.4); MEAN CORPUSCULAR HGB CONC 34.2 g/dL (32.0-36.0); MEAN CORPUSCULAR VOLUME 87 fl (80-97); PLATELET COUNT 212 10^3/uL (150-450); RED BLOOD COUNT 3.89 10^6/uL (3.72-5.28); RED CELL DISTRIBUTION WIDTH 14.3 % (11.5-14.0); SEGMENTED NEUTROPHILS % (AUTO) 67.8 % (42-78); TOTAL CELLS COUNTED % (AUTO) 100 %; WHITE BLOOD COUNT 10.6 10^3/uL (4.0-10.5)
[2019-05-24 20:45] LABS: URINE AMPHETAMINES SCREEN NEGATIVE; URINE BARBITURATES SCREEN NEGATIVE; URINE BENZODIAZEPINES SCREEN NEGATIVE; URINE COCAINE SCREEN NEGATIVE; URINE MARIJUANA (THC) SCREEN NEGATIVE; URINE METHADONE SCREEN NEGATIVE; URINE PHENCYCLIDINE SCREEN NEGATIVE
[2019-05-24] MEDS ORDERED: ZOLPIDEM TARTRATE 5 MG TABLET ONE (21:16)
[2019-05-24] MEDS ORDERED: ZOLPIDEM TARTRATE 5 MG TABLET PO ONE (21:45)
--- NOTE | 2019-05-25 08:31 | Admission Physical ---
Datetime Report Generated by CPN: 05/25/2019 08:31 CURRENT ADMISSION Indication for Induction: Maternal Diabetes Indication for Induction- Other: GDM-A2 Admit Impression : Term, Intrauterine ; No Active Labor; Intact Membranes; Induction of Labor Admit Plan: Admit to Unit; Initiate Labor Induction Protocol ALLERGIES Medication Allergies: No Medication Allergies: latex/Hives (05/24/2019) Latex: Latex Allergies Food Allergies: none Environmental Allergies: none OBSTETRICAL HISTORY EDC: 06/01/2019 00:00 : 4 Para: 3 Term: 3 : 0 SAB: 0 IAB: 0 Ectopic: 0 Livin Cesareans: 0 VBACs: 0 Multiple Births: 0 Gestational Diabetes: Yes Rh Sensitization: No Incompetent Cervix: No RENETTA: No Infertility: No ART Treatment: No Uterine Anomaly: No IUGR: No Hx Previous C/S: No Macrosomia: No Hx Loss/Stillborn: No PIH: No Hx : No Placenta Previa/Abruption: No Depression/PP Depression: No PTL/PROM: No Post Hemorrhage: No Current Procedures: Ultrasound; NST Obstetrical History Comments: G1 2001 vaginal induction G2 2002 vaginal G3 2008 vaginal induction G4 current induction GDM SEE RECORDS Alcohol: No Marijuana : No Cocaine: No Other Illicit Drugs: No Cigarettes: Former Smoker. [id number] MEDICAL HISTORY Diabetes: Yes Diabetes Type: Gestational Diabetes Blood Transfusion: No Pulmonary Disease (Asthma, TB): No Breast Disease: No Hypertension: No Violin Repairer Surgery: No Heart Disease: No Hosp/Surgery: No Autoimmune Disorder: No Anesthetic Complications: No Kidney Disease: No Abnormal Pap Smear: No Neuro/Epilepsy: No Psychiatric Disorders: No Other Medical Diseases: No Hepatitis/Liver Disease: No Significant Family History: No Varicosities/Phlebitis: No Trauma/Violence : No Thyroid Dysfunction: No Medical History Comments: surgery for tonsils and adnoids 2001 wisdom teeth 2004 INFECTIOUS HISTORY Gonorrhea: No Genital Herpes: No Chlamydia: No Tuberculosis: No Syphilis: No Hepatitis: No HIV/AIDS Exposure: No Rash or Viral Illness: No HPV: No PHYSICAL EXAM General: Normal HEENT: Normal Neurologic: Normal Thyroid: Normal Heart: Normal Lungs: Normal Breast: Normal Back: Normal Abdomen: Normal Genitourinary Exam: Normal Extremities: Normal DTRs: Normal Pelvic Type: Adequate Vital Signs: Reviewed FETUS A Monitoring: External US Decelerations: None Admit Comment: Pt admitted over night for Cervical ripening, at 39 wks. GDM-A2. Had cervidil placed last night and removed this morning at 0720. Assuming care of pt. She is doing well this morning, no complaints, has breakfast tray. GBS negative. Plan to allow pt to eat breakfast and then will start Pitocin this morning to continue w/ IOL. Attending MD is Dr Harden PLANS FOR LABOR AND DELIVERY Labor and Delivery: None Pain Management: Natural Feeding Preference: Breast Benefit of Breast Feed Discussed: Yes Circumcision: Yes INFORMED CONSENT Assignment: Shalra Harden MD Signature: with User ID: [email or web address] : with User ID: [email or web address]
[2019-05-25] MEDS ORDERED: OXYTOCIN/NORMAL SALINE 20 UNIT/1,000 ML RTUINJ IV PRN ×2 (08:37→19:02)
[2019-05-25] MEDS ORDERED: LIDOCAINE 1% INJ-PF (10 MG/ML) 30 ML SDV ONE (09:01)
[2019-05-25] MEDS ORDERED: MISOPROSTOL 0.2 MG TABLET ONE (09:01)
[2019-05-25] MEDS ORDERED: OXYTOCIN/NORMAL SALINE 20 UNIT/1,000 ML RTUINJ ONE (09:02)
[2019-05-25] MEDS ORDERED: EPHEDRINE SULFATE INJ 50 MG/1 ML AMPULE ONE (17:52)
[2019-05-25] MEDS ORDERED: FENTANYL/BUPIVACAINE/NS/PF 300 MCG/150 ML RTUINJ EPI ONE (17:52)
[2019-05-25] MEDS ORDERED: BUPIVACAINE HCL 0.25 % INJ/PF (2.5 MG/1 ML) 30 ML VIAL ONE (17:52)
[2019-05-25] MEDS ORDERED: GLYCERIN/WITCH HAZEL LEAF 1 EACH MED..WIPE TP PRN (19:02)
[2019-05-25] MEDS ORDERED: DIPH/PERTUSS(ACELL)/TETANUS VAC/PF 0.5 ML SYR (>=10YO) IM PRN (19:02)
[2019-05-25] MEDS ORDERED: ZOLPIDEM TARTRATE 5 MG TABLET PO PRN (19:02)
[2019-05-25] MEDS ORDERED: NA PHOS,M-B/NA PHOS,DI-BA (ADULT) 133 ML ENEMA PR PRN (19:02)
[2019-05-25] MEDS ORDERED: PROMETHAZINE HCL INJ 25 MG/1 ML VIAL IV PRN (19:02)
[2019-05-25] MEDS ORDERED: DIBUCAINE 1% OINTMENT 56 GM TP PRN (19:02)
[2019-05-25] MEDS ORDERED: MAGNESIUM HYDROXIDE SUSP 30 ML UDCUP PO PRN (19:02)
[2019-05-25] MEDS ORDERED: ACETAMINOPHEN 650 MG SUPP.RECT PR PRN (19:02)
[2019-05-25] MEDS ORDERED: PSEUDOEPHEDRINE HCL 30 MG TABLET PO PRN (19:02)
[2019-05-25] MEDS ORDERED: ACETAMINOPHEN WITH CODEINE #3 TABLET PO PRN ×2 (19:02)
[2019-05-25] MEDS ORDERED: DIPHENHYDRAMINE HCL 25 MG CAPSULE PO PRN (19:02)
[2019-05-25] MEDS ORDERED: PROMETHAZINE HCL 25 MG SUPP.RECT PR PRN (19:02)
[2019-05-25] MEDS ORDERED: BENZOCAINE/MENTHOL AEROSOL SPRAY 56 ML TOP PRN (19:02)
[2019-05-25] MEDS ORDERED: PROMETHAZINE HCL 25 MG TABLET PO PRN (19:02)
[2019-05-25] MEDS ORDERED: MEASLES,MUMPS&RUBELLA VACC/PF 0.5 ML VIAL SUBCUT PRN (19:02)
--- NOTE | 2019-05-25 20:24 | Delivery Summary ---
Del Sum A-C Datetime Report Generated by CPN: 05/25/2019 20:23 DELIVERY PERSONNEL DELIVERY PERSONNEL: [id number] Delivery Doctor:: Sharla Harden MD Labor and Delivery Nurse:: Liz Mcgee RN Labor and Delivery Nurse:: Lynne Moody RN Processing Spec/MEDICAL CHIEF TECHNICIAN: Elissa Oconnor CST Processing Spec/MEDICAL CHIEF TECHNICIAN: Nadege Solis CST Additional Personnel: : Natalia Keene RNC MATERNAL INFORMATION Delivery Anesthesia: None Medications After Delivery: Pitocin Bolus-Please Comment; Pitocin Drip 20 Units/1000ml NSS; Cytotec 1000mcg Per Rectum/Vagina Estimated Blood Loss (ml): 400 Delivery QBL: 265 Maternal Complications: None LABOR SUMMARY EDC: 06/01/2019 00:00 No. Babies in Womb: 1 Attempted: No Labor Anesthesia: None LABOR INFORMATION Reason for Induction: Maternal Diabetes Onset of Labor: 05/25/2019 11:00 Complete Dilatation: 05/25/2019 18:40 Cervical Ripening Agents: Cervidil Oxytocin: Augmentation Group B Beta Strep: NEGATIVE Antibiotics # of Doses: 0 Steroids Given: None Reason Steroids Not Administered: Not Applicable MEMBRANES Membranes Rupture Method: Artificial Rupture of Membranes: 05/25/2019 11:46 Length of Rupture (hr): 6.97 Amniotic Fluid Color: Bloody Amniotic Fluid Amount: Scant Amniotic Fluid Odor: Normal STAGES OF LABOR Stage 1 hr: 7 Stage 1 min: 40 Stage 2 hr: 0 Stage 2 min: 4 Stage 3 hr: 0 Stage 3 min: 6 Total Time in Labor hr: 7 Total Time in Labor min: 50 VAGINAL DELIVERY Episiotomy: None Laceration #1: None Laceration Extension #1: N/A Laceration Repair: Not Applicable Sponge Count Correct: N/A Sharps Count Correct: N/A CSECTION DELIVERY Primary Indication: N/A Secondary Indication: N/A BABY A INFORMATION Delivery Date/Time: 05/25/2019 18:44 Method of Delivery: Vaginal Born in Route : No : N/A Forceps: N/A Vacuum Extraction: N/A Shoulder Dystocia : No PRESENTATION/POSITION BABY A Presentation: Cephalic Cephalic Presentation: Vertex Vertex Position: Right Occipital Anterior Breech Presentation: N/A PLACENTA INFORMATION BABY A Placenta Delivery Time : 05/25/2019 18:50 Placenta Method of Delivery: Spontaneous Placenta Status: Delivered SCORES BABY A Heart Rate 1 min: >100 bpm Resp Effort 1 min: Good Cry Reflex Irritability 1 min: Cough or Sneeze or Pulls Away Muscle Tone 1 min: Active Motion Color 1 min: Body [place], Extremities Blue Resuscitation Effort 1 min: Tactile Stimulation SCORE 1 MIN: 9 Heart Rate 5 min: >100 bpm Resp Effort 5 min: Good Cry Reflex Irritability 5 min: Cough or Sneeze or Pulls Away Muscle Tone 5 min: Active Motion Color 5 min: Body [place], Extremities Blue Resuscitation Effort 5 min: Tactile Stimulation SCORE 5 MIN: 9 INFANT INFORMATION BABY A Gestational Age at Delivery: 39.0 Gestational Status: Full Term- 39- 40.6 Weeks Outcome : Liveborn Condition : Stable Sex: Male IDENTIFICATION BABY A Infant Verification Date/Time: 05/25/2019 19:24 ID Band Number: [id number] Mother's Name Verified: Yes RN Verifying : Marjorie Peres RN , Megan Tai RN WEIGHT/LENGTH BABY A Birthweight (gm): 3122 Infant Weight (lb): 6 Weight (oz): 14 Length (in): 19.50 Length (cm): 49.53 CORD INFORMATION BABY A No. Cord Vessels: 3 Nuchal Cord : N/A Cord Blood Taken: Yes-For Storage (Mom's Blood type +) Suction: None ASSESSMENT BABY A Complications: None Physical Findings at Delivery: Within Normal Limits Respirations: Appears Normal Skin to Skin: Yes Metal Wire Technician/ALS Called : No Care By: Charline MAYFIELD RN Transferred To: Remains with Mother BABY B INFORMATION : N/A SIGNATURES Signature: with User ID: [email or web address]
--- NOTE | 2019-05-25 20:25 | Delivery Summary ---
Del Sum A-C Datetime Report Generated by CPN: 05/25/2019 20:24 DELIVERY PERSONNEL DELIVERY PERSONNEL: [id number] Delivery Doctor:: Sharla Harden MD Labor and Delivery Nurse:: Liz Mcgee RN Labor and Delivery Nurse:: Lynne Moody RN Special Delivery Messenger/MANAGER SURGICAL: Elissa Oconnor CST Special Delivery Messenger/MANAGER SURGICAL: Nadege Solis CST Additional Personnel: : Natalia Keene RNC MATERNAL INFORMATION Delivery Anesthesia: None Medications After Delivery: Pitocin Bolus-Please Comment; Pitocin Drip 20 Units/1000ml NSS; Cytotec 1000mcg Per Rectum/Vagina Estimated Blood Loss (ml): 400 Delivery QBL: 265 Maternal Complications: None LABOR SUMMARY EDC: 06/01/2019 00:00 No. Babies in Womb: 1 Attempted: No Labor Anesthesia: None LABOR INFORMATION Reason for Induction: Maternal Diabetes Onset of Labor: 05/25/2019 11:00 Complete Dilatation: 05/25/2019 18:40 Cervical Ripening Agents: Cervidil Oxytocin: Augmentation Group B Beta Strep: NEGATIVE Antibiotics # of Doses: 0 Steroids Given: None Reason Steroids Not Administered: Not Applicable MEMBRANES Membranes Rupture Method: Artificial Rupture of Membranes: 05/25/2019 11:46 Length of Rupture (hr): 6.97 Amniotic Fluid Color: Bloody Amniotic Fluid Amount: Scant Amniotic Fluid Odor: Normal STAGES OF LABOR Stage 1 hr: 7 Stage 1 min: 40 Stage 2 hr: 0 Stage 2 min: 4 Stage 3 hr: 0 Stage 3 min: 6 Total Time in Labor hr: 7 Total Time in Labor min: 50 VAGINAL DELIVERY Episiotomy: None Laceration #1: None Laceration Extension #1: N/A Laceration Repair: Not Applicable Sponge Count Correct: N/A Sharps Count Correct: N/A CSECTION DELIVERY Primary Indication: N/A Secondary Indication: N/A BABY A INFORMATION Delivery Date/Time: 05/25/2019 18:44 Method of Delivery: Vaginal Born in Route : No : N/A Forceps: N/A Vacuum Extraction: N/A Shoulder Dystocia : No PRESENTATION/POSITION BABY A Presentation: Cephalic Cephalic Presentation: Vertex Vertex Position: Right Occipital Anterior Breech Presentation: N/A PLACENTA INFORMATION BABY A Placenta Delivery Time : 05/25/2019 18:50 Placenta Method of Delivery: Spontaneous Placenta Status: Delivered SCORES BABY A Heart Rate 1 min: >100 bpm Resp Effort 1 min: Good Cry Reflex Irritability 1 min: Cough or Sneeze or Pulls Away Muscle Tone 1 min: Active Motion Color 1 min: Body Effort, Extremities Blue Resuscitation Effort 1 min: Tactile Stimulation SCORE 1 MIN: 9 Heart Rate 5 min: >100 bpm Resp Effort 5 min: Good Cry Reflex Irritability 5 min: Cough or Sneeze or Pulls Away Muscle Tone 5 min: Active Motion Color 5 min: Body Effort, Extremities Blue Resuscitation Effort 5 min: Tactile Stimulation SCORE 5 MIN: 9 INFANT INFORMATION BABY A Gestational Age at Delivery: 39.0 Gestational Status: Full Term- 39- 40.6 Weeks Outcome : Liveborn Condition : Stable Sex: Male IDENTIFICATION BABY A Infant Verification Date/Time: 05/25/2019 19:24 ID Band Number: [id number] Mother's Name Verified: Yes RN Verifying : Marjorie Peres RN , Megan Tai RN WEIGHT/LENGTH BABY A Birthweight (gm): 3122 Infant Weight (lb): 6 Weight (oz): 14 Length (in): 19.50 Length (cm): 49.53 CORD INFORMATION BABY A No. Cord Vessels: 3 Nuchal Cord : N/A Cord Blood Taken: Yes-For Storage (Mom's Blood type +) Suction: None ASSESSMENT BABY A Complications: None Physical Findings at Delivery: Within Normal Limits Respirations: Appears Normal Skin to Skin: Yes Rigging Up Man/ALS Called : No Care By: Charline MAYFIELD RN Transferred To: Remains with Mother BABY B INFORMATION : N/A SIGNATURES Signature: with User ID: [email or web address]
[2019-05-26] MEDS: FAMOTIDINE 20 MG TABLET PO SCH ×3 (00:41→21:13)
[2019-05-26] MEDS: IBUPROFEN 800 MG TABLET PO SCH ×4 (00:41→21:13)
[2019-05-26 06:57] LABS: HEMATOCRIT 34.3 % (36.0-47.0); HEMOGLOBIN 11.5 g/dL (12.0-15.5); MEAN CORPUSCULAR HGB CONC 33.5 g/dL (32.0-36.0); MEAN CORPUSCULAR VOLUME 87 fl (80-97); PLATELET COUNT 178 10^3/uL (150-450); RED BLOOD COUNT 3.95 10^6/uL (3.72-5.28); RED CELL DISTRIBUTION WIDTH 14.4 % (11.5-14.0); WHITE BLOOD COUNT 13.7 10^3/uL (4.0-10.5)
[2019-05-26] MEDS: DOCUSATE SODIUM 100 MG CAPSULE PO SCH ×2 (09:17→17:25)
[2019-05-26] MEDS: PRENATAL VITAMIN W DHA CAPSULE PO SCH (09:17)
[2019-05-26] MEDS: SENNOSIDES/DOCUSATE 8.6-50 MG 1 EACH TABLET PO SCH (09:17)
[2019-05-26] MEDS: FERROUS SULFATE 325 MG TABLET PO SCH ×2 (09:17→17:25)
--- NOTE | 2019-05-26 12:15 | PDOC PROGRESS REPORT ---
Subjective-OB Progress Note for:: 05/26/19 Subjective: Doing well, no c/o, voiding, ambulating, , baby in room, Physical Exam (OB) Vital Signs: Temp Pulse Resp BP Pulse Ox 98.0 F 65 18 118/51 L 97 05/26/19 08:27 05/26/19 08:27 05/26/19 08:27 05/26/19 08:27 05/26/19 08:27 Intake & Output 05/25/19 05/26/19 05/27/19 06:59 06:59 06:59 Weight 103.8 kg - PIH/Pre-Eclampsia Headache: Absent Epigastric Pain: No Visual Changes: No - Lochia Lochia Amount: Small 10-25 ml Lochia Color: Rubra/Red - Abdomen Description: Soft, Round Hernia Present: No Fundal Description: Firm, Midline Fundal Height: u/u - u/2 Objective-Diagnostic Laboratory: 05/26/19 06:22 05/26/19 06:22 WBC 13.7 H RBC 3.95 Hgb 11.5 L Hct 34.3 L MCV 87 MCH 29.0 MCHC 33.5 RDW 14.4 H Plt Count 178 Assessment and Plan(PN) - Assessment and Plan (1) Gestational diabetes mellitus Qualifiers: Gestational diabetes mellitus control: diet-controlled Trimester: second trimester Qualified Code(s): O24.410 - Gestational diabetes mellitus in , diet controlled Is this a current diagnosis for this admission?: Yes (2) Delivery normal Is this a current diagnosis for this admission?: Yes - Time Spent with Patient Time with patient: Less than 15 minutes - Disposition Anticipated Discharge: Home Within: within 24 hours
[2019-05-27] MEDS: IBUPROFEN 800 MG TABLET PO SCH ×2 (05:23→13:53)
[2019-05-27 09:24] VITALS: BP 109/53
[2019-05-27] MEDS: DOCUSATE SODIUM 100 MG CAPSULE PO SCH (10:05)
[2019-05-27] MEDS: SENNOSIDES/DOCUSATE 8.6-50 MG 1 EACH TABLET PO SCH (10:05)
[2019-05-27] MEDS: FAMOTIDINE 20 MG TABLET PO SCH (10:05)
[2019-05-27] MEDS: FERROUS SULFATE 325 MG TABLET PO SCH (10:06)
[2019-05-27] MEDS: PRENATAL VITAMIN W DHA CAPSULE PO SCH (10:06)
--- NOTE | 2019-05-27 10:21 | PDOC DISCHARGE SUMMARY ---
Final Diagnosis Discharge Date: 05/27/19 - Final Diagnosis (1) Delivery normal Is this a current diagnosis for this admission?: Yes (2) Gestational diabetes mellitus Is this a current diagnosis for this admission?: Yes Discharge Data - Discharge Medication Home Medications: Glyburide [Diabeta 2.5 mg Tablet] 1 tab PO QHS 05/17/19 No122/Iron/Folic Acid [ Multi Tablet] 1 tab PO DAILY 05/17/19 Calcium Carbonate [Tums] 200 mg PO PRN PRN 05/24/19 Reason(s) for Admission: Induction of Labor, Gestional Diabetes Procedures: NST Intrapartum Procedure(s): Spontaneous Vaginal Delivery - Diagnosis Test Laboratory: Temp Pulse Resp BP Pulse Ox 97.5 F 73 24 H 109/53 L 99 05/27/19 07:10 05/27/19 07:10 05/27/19 07:10 05/27/19 07:10 05/27/19 07:10 05/24/19 05/24/19 05/26/19 18:15 20:02 06:22 RBC 3.89 3.95 Hgb 11.5 L 11.5 L Hct 33.7 L 34.3 L Urine Opiates Screen NEGATIVE - Discharge information/Instructions Discharge Activity: Balance Activity w/Rest, Pelvic Rest Discharge Diet: Regular Disposition: HOME, SELF-CARE Follow up with: [facility] in: 4, Weeks
== END 2019-05-27 16:00 | disposition home or self-care (01) | DRG 807 ==
LOC: LR 17:52 → 2S 05-25 20:59
PROVIDERS: ADMIT Obstetrics & Gynecology; ATTEND Obstetrics & Gynecology
PROC: 10E0XZZ Delivery of Products of Conception, External Approach (ICD-10-PCS; principal; 2019-05-25)
DX: O24.420 Gestational diabetes mellitus in childbirth, diet controlled (principal); Z37.0 Single live birth; Z3A.39 39 weeks gestation of pregnancy
CPT/HCPCS: 36415; 80307; 81005; 82962; 85025; 85027; 86592; 86850; 86900; 86901; C1751; J2590; J3010; J3490